=== PATIENT | male | born 1965 | race African-American/Black ===

== ENCOUNTER 2017-04-07 12:35 | Inpatient (IN) | payer OTHER ==
[2017-04-07 13:52] VITALS: BMI 45.0
--- NOTE | 2017-04-07 14:45 | HP ---
Admission [facility] Chief Complaint: REHAB TX FOR DRUG TX Allergies/Adverse Reactions: Allergies Allergy/AdvReac Type Severity Reaction Status Date / Time No Known Allergies Allergy Verified 04/07/17 14:50 History of Present Illness: 51 Y/O AA/MALE WITH A HX OF COCAINE, HEROIN AND ALCOHOL DEPENDENCE SEEKING REHAB TX. DISCHARGED TODAY FROM A DETOX FACILITY[facility] AND REFERRED TO REHAB. Exam Limitations: No Limitations - Ebola screening Have you traveled outside of the country in the last 21 days: No Have you had contact with anyone from an Ebola affected area: No Have you been sick,other than usual withdrawal symptoms: No Do you have a fever: No - Review of Systems Constitutional: Chills, Night Sweats, Changes in sleep EENT: reports: Cataracts (LEFT EYE), Nose Congestion, Dental Problems (MISSING TEETH) Respiratory: reports: Shortness of Breath (ASTHMA HX), Wheezing Cardiac: reports: No Symptoms Reported GI: reports: Constipated (OIC), Diarrhea, Nausea, Poor Fluid Intake, Vomiting, Indigestion, Abdominal cramping : reports: No Symptoms Reported Musculoskeletal: reports: Back Pain, Joint Pain, Muscle Pain Integumentary: reports: Bruising (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) Neuro: reports: Headache, Numbness (HX PERIPHERAL NEUROPATHY), Seizure (HX ALCOHOL SEIZURES), Tingling, Tremors (AND DTs IN THE PAST), Unsteady Gait Endocrine: reports: Other (HX DM/OBESITY) Hematology: reports: Other (HX HIV+) Psychiatric: reports: Orientated x3, Anxious, Depressed Other Systems: Reviewed and Negative Patient History - Patient Medical History Hx Anemia: No Hx Asthma: Yes (ALBUTEROL INHALER) Hx Chronic Obstructive Pulmonary Disease (COPD): No Hx Cancer: No Hx Cardiac Disorders: No Hx Congestive Heart Failure: No Hx Hypertension: Yes Hx Hypercholesterolemia: No Hx Pacemaker: No HX Cerebrovascular Accident: No Hx Seizures: Yes (ALCOHOL RELATED SEIZURES, LAST EPISODE IN 10/2015) Hx Dementia: No Hx Diabetes: No Hx Gastrointestinal Disorders: No Hx Liver Disease: No Hx Genitourinary Disorders: No Hx Sexually Transmitted Disorders: Yes (HX SYPHILIS WITH TX IN THE ) Hx Renal Disease (ESRD): No Hx Thyroid Disease: No Hx Human Immunodeficiency Virus (HIV): Yes (SINCE 1988--AIDS--NO CURRENT MEDS) Hx Hepatitis C: No Hx Depression: No Hx Suicide Attempt: No (DENIES) Hx Bipolar Disorder: No Hx Schizophrenia: No - Patient Surgical History Past Surgical History: Yes Hx Neurologic Surgery: Yes (right wrist carpal tunnel syndrom s/p surgery Aug 2015) Hx Cataract Extraction: No Hx Cardiac Surgery: No Hx Lung Surgery: No Hx Breast Surgery: No Hx Breast Biopsy: No Hx Abdominal Surgery: No Hx Appendectomy: No Hx Cholecystectomy: No Hx Genitourinary Surgery: No Hx Orthopedic Surgery: No Anesthesia Reaction: No - PPD History Previous Implant?: Yes Documented Results: Negative w/proof Implanted On Prior [facility] Admission?: Yes Date: 12/06/14 Results: TBD PPD to be Administered?: Yes - Reproductive History Patient is a Female of Child Bearing Age (11 -55 yrs old): No (MALE) Patient : (N/A) - Smoking Cessation Smoking history: Current some day smoker Have you smoked in the past 12 months: Yes Aproximately how many cigarettes per day: 4 If you are a former smoker, when did you quit?: 09/2013 Hx Chewing Tobacco Use: No Initiated information on smoking cessation: Yes 'Breaking Loose' booklet given: 04/07/17 - Substance & Tx. History Hx Alcohol Use: Yes (SCOTCH WHISKEY) Hx Substance Use: Yes (COCAINE/HEROIN) Substance Use Type: Alcohol, Cocaine, Heroin Hx Substance Use Treatment: Yes (LAST TX AT [facility]; D/C'D TODAY.) - Substances Abused WHISKEY Route: Oral Frequency: Daily Amount used: 1 QUART Age of first use: 17 Date of Last Use: 04/01/17 Heroin Route: Injection Frequency: 3-6 times per week (4-5 X/WEEK) Amount used: 6 BAGS Age of first use: 38 Date of Last Use: 04/01/17 CRACK Route: Smoking Frequency: 3-6 times per week Amount used: $35 Age of first use: 38 Date of Last Use: 04/02/17 Family Disease History - Family Disease History Family Disease History: CA: Grandparent (GM-), Mother, Other: Father ( ALZHEIMERS-) Other Family History: AUNTS WITH CANCER. Admission Physical Exam S - Vital Signs Vital Signs: Vital Signs - 24 hr 04/07/17 13:50 Temperature 97 F L Pulse Rate 75 Respiratory 20 Rate Blood Pressure 131/78 - Physical General Appearance: Yes: No Apparent Distress, Anxious HEENTM: Yes: EOMI, Normocephalic, MARJAN, Pharynx Normal, Other (CATARACT LEFT EYE ) Respiratory: Yes: Chest Non-Tender, Lungs Clear, Normal Breath Sounds, No Respiratory Distress Neck: Yes: No masses,lesions,Nodules, Supple, Trachea in good position Breast: Yes: Breast Exam Deferred Cardiology: Yes: Regular Rhythm, Regular Rate, S1, S2 Abdominal: Yes: Normal Bowel Sounds, Non Tender, Soft, Protuberent Genitourinary: Yes: Other (N/C) Back: Yes: Within Normal Limits Musculoskeletal: Yes: full range of Motion, Gait Steady Extremities: Yes: Normal Range of Motion, Non-Tender Neurological: Yes: safety risk lead II-XII NML intact, Fully Oriented, Alert Integumentary: Yes: Dry, Warm, Track Christy (FOREARM) Lymphatic: Yes: Within Normal Limits - Diagnostic (1) Alcohol dependence with uncomplicated withdrawal Current Visit: Yes Status: Chronic (2) Cocaine dependence, uncomplicated Current Visit: Yes Status: Chronic (3) Nicotine dependence Current Visit: Yes Status: Chronic Qualifiers: Nicotine product type: cigarettes Substance use status: uncomplicated Qualified Code(s): F17.210 - Nicotine dependence, cigarettes, uncomplicated (4) Opioid dependence with withdrawal Current Visit: Yes Status: Chronic (5) Acquired immune deficiency syndrome (AIDS) Current Visit: Yes Status: Chronic (6) Arthritis Current Visit: Yes Status: Chronic (7) Obesity Current Visit: Yes Status: Chronic (8) Seizures Current Visit: Yes Status: Chronic Qualifiers: Convulsion type: unspecified Qualified Code(s): R56.9 - Unspecified convulsions Cleared for Admission S - Detox or Rehab Claeared for Rehab Admission: Yes [facility] Breath Alcohol Content Breath Alcohol Content: 0 Urine Drug Screen - Results Drug Screen Negative: No Urine Drug Screen Results: GUDELIA-Cocaine Inpatient Rehab Admission - Initial Determination Are CD services needed?: Yes Free of communicable disease: Yes Not in need of hospitalization: No - Rehab Admission Criteria Previous failed treatment: Yes Poor recovery environment: Yes Comorbidities: Yes Lacks judgement: Yes Patient is meeting Inpatient Rehab admission criteria:: Yes
[2017-04-07] MEDS ORDERED: NICOTINE POLACRILEX 2 MG GUM BC PRN (15:28)
[2017-04-07] MEDS ORDERED: MAG HYDROX/AL HYDROX/SIMETH 30 ML UNIT-DOSE CUP PO PRN (15:28)
[2017-04-07] MEDS ORDERED: MAGNESIUM CITRATE 300 ML BOTTLE PO PRN (15:28)
[2017-04-07] MEDS ORDERED: LOPERAMIDE HCL 2 MG CAPSULE PO PRN (15:28)
[2017-04-07] MEDS ORDERED: P-EPHED 60MG/TRIPROLIDI 2.5MG TABLET PO PRN (15:28)
[2017-04-07] MEDS ORDERED: hydrOXYzine PAMOATE 25 MG CAPSULE (FP) PO PRN (15:28)
[2017-04-07] MEDS ORDERED: MAGNESIUM HYDROX 2400MG/30ML ORAL SUSPENSION 30 ML CUP PO PRN (15:28)
[2017-04-07] MEDS ORDERED: ALBUTEROL SO4 18 GM HFA INHALER IH PRN (15:32)
[2017-04-07] MEDS: LISINOPRIL 20 MG TABLET (FP) PO SCH (18:02)
[2017-04-07] MEDS: THIAMINE HCL 100 MG TABLET (FP) PO SCH (22:02)
[2017-04-07] MEDS: METOPROLOL SUCCINATE 100 MG TAB.SR.24H (FP) PO SCH (22:02)
[2017-04-07] MEDS: diphenhydrAMINE HCL 50 MG CAPSULE PO PRN (22:04)
[2017-04-07] MEDS ORDERED: TUBERCULIN PPD 5 TU/0.1ML VIAL ID ONE (22:06)
[2017-04-07] MEDS: BUDESONIDE/FORMETEROL FUMARATE 80/4.5 mcg INHALER IH SCH (22:34)
[2017-04-07 23:16] LABS: URINE APPEARANCE SLCLOUDY; URINE BILIRUBIN NEGATIVE (NEGATIVE); URINE BLOOD NEGATIVE (NEGATIVE); URINE COLOR YELLOW; URINE GLUCOSE (UA) 3+ (NEGATIVE); URINE KETONE NEGATIVE (NEGATIVE); URINE LEUK ESTERASE NEGATIVE (NEGATIVE); URINE NITRITE NEGATIVE (NEGATIVE); URINE PROTEIN NEGATIVE (NEGATIVE); URINE UROBILINOGEN NEGATIVE mg/dL (0.2-1.0)
--- NOTE | 2017-04-08 06:37 | HP ---
Psychiatrist Admission - Data Date of interview: 04/08/17 Admission source: [facility]([place]) detox Identifying data: This is the third [facility] admission for this 51 years old Black male, unemployed, homeless Medical History: Significan for bronchial asthma, hypertension, arthritis both knees, peripheral neuropathy, alcohol-related seizure, treatment for syphilis, HIV/AIDS(not on any medications)diagnosed in 1988, obesity and history of orthosurgery for carpal tunnel syndrome. Smokes 4 cigarettes daily Psychiatric History: Denies history of previous psychiatric treatment Physical/Sexual Abuse/Trauma History: Denies history of verbal, physical or sexual abuse Additional Comment: No criminal history Vital Signs: Vital Signs - 24 hr 04/07/17 13:50 Temperature 97 F L Pulse Rate 75 Respiratory 20 Rate Blood Pressure 131/78 Allergies/Adverse Reactions: Allergies Allergy/AdvReac Type Severity Reaction Status Date / Time No Known Allergies Allergy Verified 04/07/17 14:50 Date of last physical exam: 04/07/17 Concur with the findings of this exam: Yes - Substance Abuse/Tx History Hx Alcohol Use: Yes Hx Substance Use: Yes Substance Use Type: Alcohol (Started drinking alcohol at age 17, consumes cone quart of whiskey daily. Last drink on 04/01/17), Cocaine (Started smoking crack cocaine at age 38, consumes $35 worth 3-6 times daily. Last smoked on 04/02/17), Heroin (Started using heroin at age 38, consumes 6 bags3-6 times weekly. Last used on 04/01/17) Hx Substance Use Treatment: Yes (3 previous inpt detox & 2 inpt rehab @[facility]) - Admission Criteria Previous failed treatment: Yes Poor recovery environment: Yes Comorbidities: Yes Lacks judgement: Yes Mental Status Exam - Mental Status Exam Alert and Oriented to: Time, Place, Person Cognitive Function: Fair Patient Appearance: Well Groomed Patient Behavior: Uncooperative Speech Pattern: Clear Voice Loudness: Normal Thought Process: Intact, Goal Oriented Thought Disorder: Not Present Hallucinations: Denies Suicidal Ideation: Denies Homicidal Ideation: Denies Insight/Judgement: Fair Sleep: Poorly Appetite: Fair Muscle strength/Tone: Normal Gait/Station: Normal Psychiatric Findings - Problem List ([place] 1, 2,3) (1) Alcohol dependence Current Visit: Yes Status: Acute (2) Opioid dependence Current Visit: Yes Status: Acute (3) Cocaine dependence Current Visit: Yes Status: Acute (4) Nicotine dependence Current Visit: Yes Status: Chronic Qualifiers: Nicotine product type: cigarettes Substance use status: uncomplicated Qualified Code(s): F17.210 - Nicotine dependence, cigarettes, uncomplicated (5) Substance-induced sleep disorder Current Visit: Yes Status: Acute (6) Acquired immune deficiency syndrome (AIDS) Current Visit: Yes Status: Chronic (7) Arthritis Current Visit: Yes Status: Chronic (8) Obesity Current Visit: Yes Status: Chronic (9) Seizures Current Visit: Yes Status: Chronic Qualifiers: Convulsion type: unspecified Qualified Code(s): R56.9 - Unspecified convulsions (10) Bronchial asthma Current Visit: Yes Status: Acute - Initial Treatment Plan Initial Treatment Plan: 1) Start Belsomra 10 mg po HS prn for insomnia. 2) Monitor progress
[2017-04-08] MEDS: PRENATAL VITAMINS W/ FOLIC ACID TABLET (FP) PO SCH (10:11)
[2017-04-08] MEDS: guaiFENesin/D-METHORPHAN HB 10 ML UNIT-DOSE CUPS PO PRN ×2 (10:11→21:34)
[2017-04-08] MEDS: LISINOPRIL 20 MG TABLET (FP) PO SCH (10:11)
[2017-04-08] MEDS: METOPROLOL SUCCINATE 100 MG TAB.SR.24H (FP) PO SCH (10:11)
[2017-04-08] MEDS: MENTHOL/PHENOL 1 EACH UD MM PRN (10:12)
[2017-04-08] MEDS: BUDESONIDE/FORMETEROL FUMARATE 80/4.5 mcg INHALER IH SCH ×2 (10:12→21:36)
[2017-04-08 10:16] LABS: MCH 29.8 pg (25.7-33.7); MCHC 33.4 g/dl (32.0-35.9); MEAN CELL VOLUME 89.4 fl (80-96); MEAN PLT VOLUME 8.9 fl (7.5-11.1); PLATELET COUNT 202 K/MM3 (134-434); RDW 14.7 % (11.9-15.9); WHITE BLOOD COUNT 6.6 K/mm3 (4.0-10.0)
[2017-04-08 10:29] LABS: ALBUMIN 2.9 g/dl (3.4-5.0); ALK PHOS 61 U/L (45-117); ANION GAP 6 (8-16); BILIRUBIN,TOTAL 0.3 mg/dL (0.2-1.0); CALCIUM 8.3 mg/dL (8.5-10.1); CO2 27 mmol/L (21-32); GLUCOSE,RANDOM 93 mg/dL (74-106); SGOT/AST 34 U/L (15-37); SGPT/ALT 38 U/L (12-78); TOT PROT 5.9 g/dl (6.4-8.2)
--- NOTE | 2017-04-08 10:32 | EKG ---
Test Reason : Blood Pressure : / mmHG Vent. Rate : 073 BPM Atrial Rate : 073 BPM P-R Int : 176 ms QRS Dur : 080 ms QT Int : 382 ms P-R-T Axes : 066 022 052 degrees QTc Int : 420 ms NORMAL SINUS RHYTHM SEPTAL INFARCT , AGE UNDETERMINED ABNORMAL ECG NO PREVIOUS ECGS AVAILABLE Confirmed by HYUN NIX MD ([id number]) on 04/08/2017 10:31:55 AM Referred By: Confirmed By:HYUN NIX MD
[2017-04-08] MEDS ORDERED: PNEUMOC 13-VAL CONJ-DIP CRM/PF 0.5 ML DISP.SYRIN IM ONE (12:30)
[2017-04-08] MEDS: diphenhydrAMINE HCL 50 MG CAPSULE PO PRN (21:33)
[2017-04-08] MEDS: THIAMINE HCL 100 MG TABLET (FP) PO SCH (21:33)
[2017-04-08] MEDS ORDERED: SUVOREXANT 10 MG TABLET PO PRN (22:00)
[2017-04-09] MEDS: LISINOPRIL 20 MG TABLET (FP) PO SCH (10:27)
[2017-04-09] MEDS: METOPROLOL SUCCINATE 100 MG TAB.SR.24H (FP) PO SCH (10:27)
[2017-04-09] MEDS: PRENATAL VITAMINS W/ FOLIC ACID TABLET (FP) PO SCH (10:27)
[2017-04-09] MEDS: BUDESONIDE/FORMETEROL FUMARATE 80/4.5 mcg INHALER IH SCH ×2 (10:28→22:53)
[2017-04-09] MEDS: THIAMINE HCL 100 MG TABLET (FP) PO SCH (22:53)
[2017-04-10] MEDS: PRENATAL VITAMINS W/ FOLIC ACID TABLET (FP) PO SCH (10:05)
[2017-04-10] MEDS: LISINOPRIL 20 MG TABLET (FP) PO SCH (10:05)
[2017-04-10] MEDS: BUDESONIDE/FORMETEROL FUMARATE 80/4.5 mcg INHALER IH SCH ×2 (10:05→22:18)
[2017-04-10] MEDS: METOPROLOL SUCCINATE 100 MG TAB.SR.24H (FP) PO SCH (10:05)
[2017-04-10] MEDS: guaiFENesin/D-METHORPHAN HB 10 ML UNIT-DOSE CUPS PO PRN (21:48)
[2017-04-10] MEDS: THIAMINE HCL 100 MG TABLET (FP) PO SCH (21:49)
[2017-04-10] MEDS: diphenhydrAMINE HCL 50 MG CAPSULE PO PRN (21:49)
[2017-04-11] MEDS: PRENATAL VITAMINS W/ FOLIC ACID TABLET (FP) PO SCH (09:59)
[2017-04-11] MEDS: BUDESONIDE/FORMETEROL FUMARATE 80/4.5 mcg INHALER IH SCH ×2 (09:59→23:13)
[2017-04-11] MEDS: LISINOPRIL 20 MG TABLET (FP) PO SCH (09:59)
[2017-04-11] MEDS: METOPROLOL SUCCINATE 100 MG TAB.SR.24H (FP) PO SCH (09:59)
[2017-04-11] MEDS ORDERED: SUVOREXANT 10 MG TABLET PO PRN (22:00)
[2017-04-11] MEDS: THIAMINE HCL 100 MG TABLET (FP) PO SCH (22:11)
[2017-04-11] MEDS: guaiFENesin/D-METHORPHAN HB 10 ML UNIT-DOSE CUPS PO PRN (22:12)
[2017-04-11] MEDS: diphenhydrAMINE HCL 50 MG CAPSULE PO PRN (22:12)
[2017-04-12] MEDS: PRENATAL VITAMINS W/ FOLIC ACID TABLET (FP) PO SCH (10:02)
[2017-04-12] MEDS: LISINOPRIL 20 MG TABLET (FP) PO SCH (10:02)
[2017-04-12] MEDS: BUDESONIDE/FORMETEROL FUMARATE 80/4.5 mcg INHALER IH SCH ×2 (10:02→22:02)
[2017-04-12] MEDS: METOPROLOL SUCCINATE 100 MG TAB.SR.24H (FP) PO SCH (10:02)
[2017-04-12] MEDS: diphenhydrAMINE HCL 50 MG CAPSULE PO PRN (21:59)
[2017-04-12] MEDS: MENTHOL/PHENOL 1 EACH UD MM PRN (22:02)
[2017-04-12] MEDS: guaiFENesin/D-METHORPHAN HB 10 ML UNIT-DOSE CUPS PO PRN (22:02)
[2017-04-12] MEDS: IBUPROFEN 400 MG TABLET (FP) PO PRN (22:02)
[2017-04-12] MEDS: THIAMINE HCL 100 MG TABLET (FP) PO SCH (22:03)
[2017-04-13] MEDS: METOPROLOL SUCCINATE 100 MG TAB.SR.24H (FP) PO SCH (10:04)
[2017-04-13] MEDS: IBUPROFEN 400 MG TABLET (FP) PO PRN ×2 (10:04→21:56)
[2017-04-13] MEDS: PRENATAL VITAMINS W/ FOLIC ACID TABLET (FP) PO SCH (10:04)
[2017-04-13] MEDS: BUDESONIDE/FORMETEROL FUMARATE 80/4.5 mcg INHALER IH SCH ×2 (10:05→21:58)
[2017-04-13] MEDS: LISINOPRIL 20 MG TABLET (FP) PO SCH (10:05)
[2017-04-13] MEDS: THIAMINE HCL 100 MG TABLET (FP) PO SCH (21:56)
[2017-04-13] MEDS: guaiFENesin/D-METHORPHAN HB 10 ML UNIT-DOSE CUPS PO PRN (21:56)
[2017-04-13] MEDS: diphenhydrAMINE HCL 50 MG CAPSULE PO PRN (21:56)
[2017-04-14] MEDS: BUDESONIDE/FORMETEROL FUMARATE 80/4.5 mcg INHALER IH SCH ×2 (09:58→21:41)
[2017-04-14] MEDS: LISINOPRIL 20 MG TABLET (FP) PO SCH (09:58)
[2017-04-14] MEDS: PRENATAL VITAMINS W/ FOLIC ACID TABLET (FP) PO SCH (09:59)
[2017-04-14] MEDS: METOPROLOL SUCCINATE 100 MG TAB.SR.24H (FP) PO SCH (09:59)
[2017-04-14] MEDS: THIAMINE HCL 100 MG TABLET (FP) PO SCH (21:41)
[2017-04-14] MEDS: diphenhydrAMINE HCL 50 MG CAPSULE PO PRN (21:41)
[2017-04-15] MEDS: BUDESONIDE/FORMETEROL FUMARATE 80/4.5 mcg INHALER IH SCH ×2 (10:28→21:47)
[2017-04-15] MEDS: ACETAMINOPHEN 325 MG TABLET (FP) PO PRN (10:29)
[2017-04-15] MEDS: PRENATAL VITAMINS W/ FOLIC ACID TABLET (FP) PO SCH (10:29)
[2017-04-15] MEDS: LISINOPRIL 20 MG TABLET (FP) PO SCH (10:29)
[2017-04-15] MEDS: METOPROLOL SUCCINATE 100 MG TAB.SR.24H (FP) PO SCH (10:29)
[2017-04-15] MEDS: SUVOREXANT 10 MG TABLET PO PRN (21:45)
[2017-04-15] MEDS: diphenhydrAMINE HCL 50 MG CAPSULE PO PRN (21:45)
[2017-04-15] MEDS: THIAMINE HCL 100 MG TABLET (FP) PO SCH (21:45)
[2017-04-15] MEDS: guaiFENesin/D-METHORPHAN HB 10 ML UNIT-DOSE CUPS PO PRN (21:47)
[2017-04-16] MEDS: LISINOPRIL 20 MG TABLET (FP) PO SCH (10:23)
[2017-04-16] MEDS: guaiFENesin/D-METHORPHAN HB 10 ML UNIT-DOSE CUPS PO PRN ×2 (10:23→22:02)
[2017-04-16] MEDS: METOPROLOL SUCCINATE 100 MG TAB.SR.24H (FP) PO SCH (10:23)
[2017-04-16] MEDS: PRENATAL VITAMINS W/ FOLIC ACID TABLET (FP) PO SCH (10:23)
[2017-04-16] MEDS: IBUPROFEN 400 MG TABLET (FP) PO PRN (10:24)
[2017-04-16] MEDS: BUDESONIDE/FORMETEROL FUMARATE 80/4.5 mcg INHALER IH SCH ×2 (10:28→22:02)
[2017-04-16] MEDS: SUVOREXANT 10 MG TABLET PO PRN (22:00)
[2017-04-16] MEDS: ACETAMINOPHEN 325 MG TABLET (FP) PO PRN (22:02)
[2017-04-16] MEDS: THIAMINE HCL 100 MG TABLET (FP) PO SCH (22:02)
[2017-04-16] MEDS: diphenhydrAMINE HCL 50 MG CAPSULE PO PRN (22:03)
[2017-04-17] MEDS ORDERED: SUVOREXANT 10 MG TABLET PO PRN ×2 (07:04→22:00)
[2017-04-17] MEDS: IBUPROFEN 400 MG TABLET (FP) PO PRN (10:00)
[2017-04-17] MEDS: LISINOPRIL 20 MG TABLET (FP) PO SCH (10:00)
[2017-04-17] MEDS: PRENATAL VITAMINS W/ FOLIC ACID TABLET (FP) PO SCH (10:01)
[2017-04-17] MEDS: METOPROLOL SUCCINATE 100 MG TAB.SR.24H (FP) PO SCH (10:01)
[2017-04-17] MEDS: BUDESONIDE/FORMETEROL FUMARATE 80/4.5 mcg INHALER IH SCH ×2 (10:01→21:24)
[2017-04-17] MEDS: diphenhydrAMINE HCL 50 MG CAPSULE PO PRN (21:26)
[2017-04-17] MEDS: SUVOREXANT 10 MG TABLET PO PRN (21:26)
[2017-04-17] MEDS: THIAMINE HCL 100 MG TABLET (FP) PO SCH (21:26)
[2017-04-17] MEDS: ACETAMINOPHEN 325 MG TABLET (FP) PO PRN (21:27)
[2017-04-18] MEDS: ACETAMINOPHEN 325 MG TABLET (FP) PO PRN ×2 (10:18→22:01)
[2017-04-18] MEDS: PRENATAL VITAMINS W/ FOLIC ACID TABLET (FP) PO SCH (10:18)
[2017-04-18] MEDS: LISINOPRIL 20 MG TABLET (FP) PO SCH (10:19)
[2017-04-18] MEDS: METOPROLOL SUCCINATE 100 MG TAB.SR.24H (FP) PO SCH (10:19)
[2017-04-18] MEDS: BUDESONIDE/FORMETEROL FUMARATE 80/4.5 mcg INHALER IH SCH ×2 (10:19→21:58)
[2017-04-18] MEDS: THIAMINE HCL 100 MG TABLET (FP) PO SCH (21:58)
[2017-04-18] MEDS: guaiFENesin/D-METHORPHAN HB 10 ML UNIT-DOSE CUPS PO PRN (22:01)
[2017-04-18] MEDS: diphenhydrAMINE HCL 50 MG CAPSULE PO PRN (22:01)
[2017-04-19] MEDS: IBUPROFEN 400 MG TABLET (FP) PO PRN (10:06)
[2017-04-19] MEDS: PRENATAL VITAMINS W/ FOLIC ACID TABLET (FP) PO SCH (10:07)
[2017-04-19] MEDS: METOPROLOL SUCCINATE 100 MG TAB.SR.24H (FP) PO SCH (10:07)
[2017-04-19] MEDS: LISINOPRIL 20 MG TABLET (FP) PO SCH (10:07)
[2017-04-19] MEDS: BUDESONIDE/FORMETEROL FUMARATE 80/4.5 mcg INHALER IH SCH ×2 (10:08→21:46)
[2017-04-19] MEDS: THIAMINE HCL 100 MG TABLET (FP) PO SCH (21:44)
[2017-04-19] MEDS: diphenhydrAMINE HCL 50 MG CAPSULE PO PRN (21:44)
[2017-04-19] MEDS: guaiFENesin/D-METHORPHAN HB 10 ML UNIT-DOSE CUPS PO PRN (21:44)
[2017-04-19] MEDS: ACETAMINOPHEN 325 MG TABLET (FP) PO PRN (21:44)
[2017-04-20] MEDS ORDERED: SUVOREXANT 10 MG TABLET PO PRN (06:29)
[2017-04-20] MEDS: BUDESONIDE/FORMETEROL FUMARATE 80/4.5 mcg INHALER IH SCH ×2 (09:35→23:40)
[2017-04-20] MEDS: guaiFENesin/D-METHORPHAN HB 10 ML UNIT-DOSE CUPS PO PRN (09:36)
[2017-04-20] MEDS: ACETAMINOPHEN 325 MG TABLET (FP) PO PRN (09:36)
[2017-04-20] MEDS: PRENATAL VITAMINS W/ FOLIC ACID TABLET (FP) PO SCH (09:36)
[2017-04-20] MEDS: METOPROLOL SUCCINATE 100 MG TAB.SR.24H (FP) PO SCH (09:36)
[2017-04-20] MEDS: LISINOPRIL 20 MG TABLET (FP) PO SCH (09:36)
[2017-04-20] MEDS: THIAMINE HCL 100 MG TABLET (FP) PO SCH (23:40)
[2017-04-21 07:10] VITALS: TEMP 98.3
--- NOTE | 2017-04-21 07:32 | PN ---
Psychiatric Progress Note Vital Signs: Vital Signs Period Temp Pulse Resp BP Sys/Collins Pulse Ox Last 24 Hr 98.3 F 88-89 18-20 135-146/97-98 Date of Session: 04/21/17 Chief Complaint:: Discharge Note HPI: Patient addressing Alcohol, Opoid and Cocaine Dependencecomorbid with Nicotine Dependence and Substance-Induced Sleep Disorder ROS: HIV+, Arthritis both knees, Asthma, Obesity and Alcohol-related seizure were medically addressed Current Medications: Active Medications Generic Name Dose Route Start Last Admin Trade Name Freq PRN Reason Stop Dose Admin Acetaminophen 650 mg 04/07/17 15:28 04/20/17 09:36 Tylenol - PO 650 mg Q4H PRN Administration PAIN Al Hydroxide/Mg Hydroxide 30 ml 04/07/17 15:28 Mylanta Oral Suspension - PO Q6H PRN DYSPEPSIA Albuterol Sulfate 2 puff 04/07/17 15:32 Ventolin Hfa Inhaler - IH Q4H PRN ASTHMA Budesonide/Formoterol Fumarate 2 puff 04/07/17 22:00 04/20/17 23:40 Symbicort 80/4.5mcg - IH Not Given BID JORGITO Diphenhydramine HCl 50 mg 04/07/17 15:28 04/19/17 21:44 Benadryl - PO 50 mg HSMR1 PRN Administration INSOMNIA Eucalyptus/Menthol/Phenol/Sorbitol 1 each 04/07/17 15:28 04/12/17 22:02 Cepastat Lozenge - MM 1 each Q4H PRN Administration SORE THROAT Guaifenesin 10 ml 04/07/17 15:28 04/20/17 09:36 Robitussin Dm - PO 10 ml Q6H PRN Administration COUGH Hydroxyzine Pamoate 25 mg 04/07/17 15:28 Vistaril - PO Q4H PRN AGITATION Ibuprofen 400 mg 04/07/17 15:28 04/19/17 10:06 Motrin - PO 400 mg Q6H PRN Administration SEVERE PAIN Lisinopril 40 mg 04/07/17 18:00 04/20/17 09:36 Prinivil PO 40 mg DAILY JORGITO Administration Loperamide HCl 4 mg 04/07/17 15:28 Imodium - PO Q6H PRN DIARRHEA Magnesium Citrate 300 ml 04/07/17 15:28 Citroma - PO Q48H PRN CONSTIPATION Magnesium Hydroxide 30 ml 04/07/17 15:28 Milk Of Magnesia - PO DAILY PRN CONSTIPATION Metoprolol Succinate 100 mg 04/07/17 18:00 04/20/17 09:36 Toprol Xl - PO 100 mg DAILY JORGITO Administration Nicotine Polacrilex 2 mg 04/07/17 15:28 Nicorette Gum - BC Q2H PRN NICOTINE REPLACEMENT RX Multivit/Folic Acid/Iron 1 tab 04/08/17 10:00 04/20/17 09:36 Vitamins (Sjr) - PO 1 tab DAILY JORGITO Administration Pseudoephedrine/Triprolidine 1 combo 04/07/17 15:28 Actifed - PO TID PRN NASAL CONGESTION Thiamine HCl 100 mg 04/07/17 22:00 04/20/17 23:40 Vitamin B1 - PO Not Given HS JORGITO Current Side Effect: No Lab tests ordered: Yes Lab tests reviewed: Yes Provider note:: Patient has completed this program today. He has met his treatment goals and will continue to address his issues in outpatient treatment at [facility]. Told life insurance underwriter that from his participation in this program, he has learned about being more honest with himself and as well as listening more. He is stable for discharge today Total face to face time:: 35 Mental Status Exam - Mental Status Exam Alert and Oriented to: Time, Place, Person Cognitive Function: Fair Patient Appearance: Well Groomed Mood: Hopeful, Euthymic Affect: Appropriate Patient Behavior: Cooperative Speech Pattern: Clear Voice Loudness: Normal Thought Process: Intact, Goal Oriented Thought Disorder: Not Present Hallucinations: Denies Suicidal Ideation: Denies Homicidal Ideation: Denies Insight/Judgement: Fair Sleep: Fair Appetite: Good Muscle strength/Tone: Normal Gait/Station: Normal Psychiatric Treatment Plan - Problem List (1) Alcohol dependence Current Visit: Yes (2) Opioid dependence Current Visit: Yes (3) Cocaine dependence Current Visit: Yes (4) Nicotine dependence Current Visit: Yes Qualifiers: Nicotine product type: cigarettes Substance use status: uncomplicated Qualified Code(s): F17.210 - Nicotine dependence, cigarettes, uncomplicated; F17.210 - Nicotine dependence, cigarettes, uncomplicated (5) Substance-induced sleep disorder Current Visit: Yes (6) Acquired immune deficiency syndrome (AIDS) Current Visit: Yes (7) Arthritis Current Visit: Yes (8) Obesity Current Visit: Yes (9) Seizures Current Visit: Yes Qualifiers: Convulsion type: unspecified Qualified Code(s): R56.9 - Unspecified convulsions; R56.9 - Unspecified convulsions; R56.9 - Unspecified convulsions; R56.9 - Unspecified convulsions (10) Bronchial asthma Current Visit: Yes Initial treatment plan: Patient is discharged today and referred to for outpatient treatment at [facility]
[2017-04-21] MEDS: guaiFENesin/D-METHORPHAN HB 10 ML UNIT-DOSE CUPS PO PRN (10:01)
[2017-04-21] MEDS: LISINOPRIL 20 MG TABLET (FP) PO SCH (10:01)
[2017-04-21] MEDS: BUDESONIDE/FORMETEROL FUMARATE 80/4.5 mcg INHALER IH SCH (10:01)
[2017-04-21] MEDS: METOPROLOL SUCCINATE 100 MG TAB.SR.24H (FP) PO SCH (10:01)
[2017-04-21] MEDS: PRENATAL VITAMINS W/ FOLIC ACID TABLET (FP) PO SCH (10:01)
[2017-04-21] MEDS: IBUPROFEN 400 MG TABLET (FP) PO PRN (10:01)
[2017-04-21 11:00] VITALS: BP 138/100; PULSE 90
== END 2017-04-21 10:25 | disposition home or self-care (01) | DRG 772 ==
LOC: YASAS 12:35 → Y3W 17:29
PROVIDERS: ADMIT Psychiatry & Neurology Psychiatry; ATTEND Psychiatry & Neurology Psychiatry
PROC: HZ42ZZZ Group Counseling for Substance Abuse Treatment, Cognitive-Behavioral (ICD-10-PCS; principal; 2017-04-07)
DX: F11.23 Opioid dependence with withdrawal (principal); F10.230 Alcohol dependence with withdrawal, uncomplicated; F14.20 Cocaine dependence, uncomplicated; F17.210 Nicotine dependence, cigarettes, uncomplicated; F19.282 Other psychoactive substance dependence with psychoactive substance-induced sleep disorder; G40.509 Epileptic seizures related to external causes, not intractable, without status epilepticus; M13.862 Other specified arthritis, left knee; M13.861 Other specified arthritis, right knee; Z21 Asymptomatic human immunodeficiency virus [HIV] infection status; E66.9 Obesity, unspecified; Z68.42 Body mass index [BMI] 45.0-49.9, adult; Z59.0 Homelessness
CPT/HCPCS: 36415; 80053; 81003; 85027; 86593; 90670; 93005; 93010